=== PATIENT | male | born 1995 | race Caucasian/White ===

== ENCOUNTER 2021-04-10 18:19 | Emergency (ER) | payer OTHER ==
[~2021-04-10] VITALS: Ht 188 cm; Wt 59.2 kg
[2021-04-10 18:40] VITALS: BP 134/77
[2021-04-10] MEDS ORDERED: ONDA-24 SL (19:49)
[2021-04-10] MEDS ORDERED: HYDR-637 PO (19:49)
[2021-04-10] MEDS ORDERED: OMEP20EC11 PO (19:49)
[2021-04-10 20:01] VITALS: BP 138/79
--- NOTE | 2021-04-10 20:01 | NUR ---
NO NURSING INTERVENTIONS NEEDED
--- NOTE | 2021-04-10 21:36 | NUR ---
Patient discharged with v/s stable. Written and verbal after care instructions given and explained. Patient verbalized understanding. Ambulatory with steady gait. All questions addressed prior to discharge. Advised to follow up with PMD.
== END 2021-04-10 21:36 | disposition home or self-care (01) ==
LOC: MED 18:19
DX: F41.9 Anxiety disorder, unspecified (principal); K21.9 Gastro-esophageal reflux disease without esophagitis; F12.10 Cannabis abuse, uncomplicated; F17.210 Nicotine dependence, cigarettes, uncomplicated
CPT/HCPCS: 99283